=== PATIENT | male | born 1985 | race Two or more races ===

== ENCOUNTER 2016-07-29 14:18 | Emergency (ER) | payer MEDICAID ==
[~2016-07-29] VITALS: Ht 185.4 cm; Wt 149.7 kg
[2016-07-29 14:31] VITALS: BP 145/87
== END 2016-07-29 16:22 | disposition home or self-care (01) ==
LOC: ER 14:18
DX: S56.911A Strain of unspecified muscles, fascia and tendons at forearm level, right arm, initial encounter (principal); F17.210 Nicotine dependence, cigarettes, uncomplicated; X58.XXXA Exposure to other specified factors, initial encounter; Y93.89 Activity, other specified; Y99.8 Other external cause status; Y92.89 Other specified places as the place of occurrence of the external cause
CPT/HCPCS: 73090

== ENCOUNTER 2019-10-31 17:16 | Emergency (ER) | payer MEDICAID ==
[~2019-10-31] VITALS: Ht 185.4 cm; Wt 158.3 kg
[2019-10-31 17:23] VITALS: BP 149/89
[2019-10-31 21:22] LABS: Basophils # (auto) 0 10 ^3/uL (0-0.2); Basophils % (auto) 0.7 % (0.0-2.0); Eosinophils # (auto) 0 10 ^3/uL (0-0.8); Eosinophils % (auto) 0.1 % (0.0-7.0); Hematocrit 41.4 % (41.0-53.0); Hemoglobin 14.3 g/dL (13.5-17.5); Lymphocytes # (auto) 1.4 10 ^3/uL (0.4-5.4); Lymphocytes % (auto) 32.8 % (10.0-50.0); Mean Corpuscular Hemoglobin 30.7 pg (28.0-32.0); Mean Corpuscular Hgb Conc. 34.5 g/dL (32.0-36.0); Mean Corpuscular Volume 88.9 fL (80.0-100.0); Monocytes # (auto) 0.6 10 ^3/uL (0-1.3); Monocytes % (auto) 14.5 % (0.0-12.0); Neutrophils # (auto) 2.2 10 ^3/uL (1.6-8.6); Neutrophils % (auto) 51.9 % (37.0-80.0); Nucleated Red Blood Cells % 0.1 %; Platelet Count (auto) 153 10^3/uL (140-450); Red Blood Cells 4.66 10^6/uL (4.5-5.90); Red Cell Distribution Width 14.3 % (11.8-14.3); White Blood Cell 4.2 10^3/uL (4.4-10.8)
[2019-10-31 21:45] LABS: Albumin 3.7 g/dL (3.4-5.0); Anion Gap 6 (5-15); BUN/Creatinine Ratio 10.4; Blood Urea Nitrogen 10 mg/dL (7-18); Calcium 8.3 mg/dL (8.5-10.1); Carbon Dioxide 29 mmol/L (21-32); Chloride 103 mmol/L (98-107); GFR African American 116 mL/min; GFR Non-African American 96 mL/min; Glucose 99 mg/dL (74-106); INR 1.17 (0.9-1.15); Partial Thromboplastin Time 31.9 sec (23.64-32.05); Potassium 3.7 mmol/L (3.5-5.1); Sodium 138 mmol/L (136-145)
[2019-10-31 21:50] LABS: Alanine Aminotransferase 96 U/L (16-61); Alkaline Phosphatase 67 U/L (45-117); Aspartate Aminotransferase 45 U/L (15-37); Bilirubin, Total 0.5 mg/dL (0.2-1.0); Total Protein 8.2 g/dL (6.4-8.2)
[2019-10-31] MEDS ORDERED: IOHEXOL 350 MG/ML 100ML IJ ONE (22:55)
== END 2019-10-31 21:00 | disposition left against medical advice (07) ==
LOC: ER 17:16
DX: R07.89 Other chest pain (principal); K21.9 Gastro-esophageal reflux disease without esophagitis; F17.210 Nicotine dependence, cigarettes, uncomplicated
CPT/HCPCS: 36415; 71046; 80053; 83880; 84484; 85025; 85379; 85610; 85730; 93005

== ENCOUNTER 2023-05-21 20:38 | Emergency (ER) | payer MEDICAID ==
[~2023-05-21] VITALS: Ht 185.4 cm; Wt 157.7 kg
[2023-05-22] MEDS ORDERED: cefTRIAXone SOD 1,000 MG VL IM ONE (00:15)
[2023-05-22] MEDS ORDERED: KETOROLAC TROMETH 60MG/2ML VIAL IM ONE (00:15)
[2023-05-22] MEDS ORDERED: CIPR1SUS8 OT (00:18)
[2023-05-22] MEDS ORDERED: AMOX875T4 PO (00:18)
[2023-05-22] MEDS ORDERED: IBUP-1456 PO (00:18)
[2023-05-22 01:31] VITALS: BP 141/89; PULSE 87; RESP 16; TEMP 98.5; O2SAT 96
== END 2023-05-22 02:07 | disposition home or self-care (01) ==
LOC: ER 20:38
DX: H60.93 Unspecified otitis externa, bilateral (principal); Z79.1 Long term (current) use of non-steroidal anti-inflammatories (NSAID); Z79.2 Long term (current) use of antibiotics
CPT/HCPCS: 96372; 99284; J0696; J1885